=== PATIENT | female | born 1975 | race Caucasian/White ===

== ENCOUNTER 2016-12-13 17:34 | Emergency (ER) | payer BC | END 2016-12-13 18:50 | disposition home or self-care (01) | LOC: ER 17:34 | DX: S61.052A Open bite of left thumb without damage to nail, initial encounter (principal); S61.552A Open bite of left wrist, initial encounter; F32.9 Major depressive disorder, single episode, unspecified; W54.0XXA Bitten by dog, initial encounter; F17.210 Nicotine dependence, cigarettes, uncomplicated; Z79.899 Other long term (current) drug therapy ==